=== PATIENT | female | born 1950 | race African-American/Black ===

== ENCOUNTER 2024-02-01 12:17 | Inpatient (IN) | payer MEDICARE ==
[~2024-02-01] VITALS: Ht 165.1 cm; Wt 64.4 kg
[2024-02-01 13:29] LABS: BASOPHILS % 0.5 % (0.0-2.0); DIFFERENTIAL COMMENT 0; EOSINOPHILS % 0.3 % (0.0-5.0); HEMATOCRIT. 46.6 % (36.0-48.0); HEMOGLOBIN. 14.2 g/dL (12.0-16.0); LYMPHOCYTES % 12.7 % (20.0-50.0); MEAN CORPUSCULAR HEMOGLOBIN 28.1 pg (28.0-32.0); MEAN CORPUSCULAR HGB CONC 30.4 g/dL (31.0-37.0); MEAN CORPUSCULAR VOLUME 92.3 fL (81.0-99.0); MEAN PLATELET VOLUME 7.8 fl (7.4-10.4); MONOCYTES % 3.5 % (2.0-8.0); PLATELET 295 x1000/uL (130-400); RED BLOOD CELL COUNT 5.05 mill/uL (4.2-5.4); WHITE BLOOD COUNT 6.4 x1000/uL (4.5-11.0)
[2024-02-01 13:44] LABS: CHLORIDE 112 mEq/L (98-107); SODIUM 142 mEq/L (136-145)
[2024-02-01 13:45] LABS: CALCIUM 9.8 mg/dL (8.7-10.4); CARBON DIOXIDE 21 mEq/L (21-32)
[2024-02-01 13:50] LABS: CREATININE 0.9 mg/dL (0.6-1.0); GLUCOSE 178 mg/dL (70-105); UREA NITROGEN BLOOD 9 mg/dL (9-23)
[2024-02-01 13:51] LABS: TROPONIN I HIGH SENSITIVITY 13 ng/L (3.0-34)
[2024-02-01 13:52] LABS: ACETAMINOPHEN < 2 ug/mL (10-30)
[2024-02-01 13:54] LABS: ETHANOL BLOOD < 10 mg/dL (<10)
[2024-02-01 15:49] LABS: TROPONIN I HIGH SENSITIVITY 35 ng/L (3.0-34)
[2024-02-01 15:51] LABS: CLARITY URINE CLEAR (CLEAR); COLOR URINE YELLOW (YELLOW); GLUCOSE URINE 1+ (NEGATIVE); KETONES URINE 1+ (NEGATIVE); LEUKOCYTE ESTERASE URINE NEGATIVE (NEGATIVE); NITRITE URINE NEGATIVE (NEGATIVE); OCCULT BLOOD URINE NEGATIVE (NEGATIVE); PH URINE 5.5 (4.5-8.0); PROTEIN URINE 1+ (NEGATIVE); SPECIFIC GRAVITY URINE 1.021 (1.005-1.030); UROBILINOGEN URINE 0.2 E.U./dL (0.2-1.0)
[2024-02-01 16:06] LABS: *AMPHETAMINES SCREEN URINE NEGATIVE (NEGATIVE); *BARBITURATES SCREEN URINE NEGATIVE (NEGATIVE); *BENZODIAZEPINES SCREEN URINE NEGATIVE (NEGATIVE); *COCAINE SCREEN URINE NEGATIVE (NEGATIVE); CANNABINOID URINE SCREEN PRESUMPTIVE POSITIVE (NEGATIVE); ECSTASY MDMA SCREEN URINE NEGATIVE (NEGATIVE); METHADONE URINE SCREEN NEGATIVE (NEGATIVE); OPIATES URINE SCREEN NEGATIVE (NEGATIVE); PHENCYCLIDINE URINE SCREEN NEGATIVE (NEGATIVE)
[2024-02-01 16:46] LABS: BACTERIA URINE NONE SEEN; RBC URINE 0-2 /hpf (0-2); SQUAMOUS EPITHELIAL CELL URINE 1+ /lpf (RARE/1+); URIC ACID CRYSTALS URINE 1+ /lpf; WBC URINE 0-2 /hpf (0-2); YEAST URINE NONE SEEN
[2024-02-01] MEDS: MAGNESIUM 2 G PREMIX 50 ML IV NR (22:49)
[2024-02-02] VITALS (10 sets, daily range): BP systolic 88–124; BP diastolic 52–67; PULSE 80–92; RESP 13–24; TEMP 36.3918–37.16964; O2SAT 93–100
[2024-02-02] MEDS ORDERED: MIRT-90 PO (02:41)
[2024-02-02] MEDS: ACETAMINOPHEN 325MG TABLET PO PRN (09:56)
[2024-02-02 12:19] LABS: HEPATITIS B SURFACE ANTIGEN NEGATIVE (Negative)
[2024-02-02 12:40] LABS: HEPATITIS C AB NON REACTIVE (Neg) (Negative)
[2024-02-02] MEDS ORDERED: TRAZ-251 PO (13:29)
== END 2024-02-02 18:47 | disposition home or self-care (01) | DRG 918 ==
LOC: ER 13:06 → 5EST 17:14
PROVIDERS: ADMIT Internal Medicine; ATTEND Internal Medicine
DX: T42.4X1A Poisoning by benzodiazepines, accidental (unintentional), initial encounter (principal); T40.721A Poisoning by synthetic cannabinoids, accidental (unintentional), initial encounter; Y92.89 Other specified places as the place of occurrence of the external cause
CPT/HCPCS: 36415; 71045; 80048; 80305; 80307; 80320; 80329; 81003; 83735; 84484; 85025; 86705; 87340; 93005; 99285; J3475; G0480

== ENCOUNTER 2025-01-02 23:46 | Emergency (ER) | payer MEDICARE ==
[~2025-01-02] VITALS: Ht 165.1 cm; Wt 65.0 kg
[~2025-01-02 23:46] MED LIST: LEVE1000 MT
[2025-01-02 23:54] VITALS: TEMP 36.8; O2SAT 100
[2025-01-03] MEDS: LEVETIRACETAM 1000MG PREMIX 100 ML IV ONE (00:22)
[2025-01-03 00:23] LABS: BASOPHILS % 1.1 % (0.0-2.0); EOSINOPHILS % 0.7 % (0.0-5.0); HEMATOCRIT. 43.6 % (36.0-48.0); HEMOGLOBIN. 14.0 g/dL (12.0-16.0); LYMPHOCYTES % 23.2 % (20.0-50.0); MEAN PLATELET VOLUME 7.4 fl (7.4-10.4); MONOCYTES % 7.0 % (2.0-8.0); NEUTROPHILS % 68.0 % (40.0-76.0); PLATELET 263 x1000/uL (130-400); RED BLOOD CELL COUNT 4.87 mill/uL (4.2-5.4); RED CELL DISTRIBUTION WIDTH 12.5 % (11.6-14.6)
[2025-01-03 00:36] LABS: CREATININE 0.8 mg/dL (0.6-1.0)
[2025-01-03 00:37] LABS: UREA NITROGEN BLOOD 13 mg/dL (9-23)
[2025-01-03 00:38] LABS: ASPARTATE AMINOTRANSFERASE 26 IU/L (<34)
[2025-01-03 00:39] LABS: BILIRUBIN DIRECT 0.1 mg/dL (<=3.0); BILIRUBIN TOTAL 0.6 mg/dL (0.1-1.0); PROTEIN TOTAL 6.8 g/dL (6.0-8.3)
[2025-01-03] MEDS ORDERED: LEVE1000 MT (00:59)
[2025-01-03 01:08] VITALS: BP 126/69; PULSE 96; RESP 18; O2SAT 97
[2025-01-03 01:12] LABS: ETHANOL BLOOD < 10 mg/dL (<10)
== END 2025-01-03 01:23 | disposition home or self-care (01) ==
LOC: ER 23:46 → CMPBEDREQ 01-03 07:23
DX: G40.409 Other generalized epilepsy and epileptic syndromes, not intractable, without status epilepticus (principal); Z98.890 Other specified postprocedural states; Z79.899 Other long term (current) drug therapy
CPT/HCPCS: 80076; 80048; 80320; 83735; 85025; 36415; 93005; 99284; 96365; J1953; G0480